=== PATIENT | female | born 1995 | race Caucasian/White ===

== ENCOUNTER 2017-05-15 20:33 | Emergency (ER) | payer OTHER ==
[~2017-05-15] VITALS: Ht 175.3 cm; Wt 117.9 kg
[2017-05-15 20:38] VITALS: BP 115/73
--- NOTE | 2017-05-15 21:18 | NUR ---
PT TAKEN TO BED 3
--- NOTE | 2017-05-15 21:25 | NUR ---
21F BIB SELF C/O MID-LOWER CHEST PAIN, PRESSURE, RADIATES TO BACK, 2/10 X YESTERDAY; NORMAL SINUS RHYTHM NOTED ON THE MONITOR AT THIS TIME; PT STATES " I WAS WORKING AND IT JUST STARTED HURTING"; PT AA&OX4, PERRLA, BL LUNG SOUNDS CLEAR, RR EVEN/UNLABORED, SKIN IS WARM/DRY/INTACT AT THIS TIME; PT STATES NO N/V/D AT THIS TIME; ABDOMEN SOFT, NON-TENDER, ACTIVE BOWEL SOUNDS X 4 QUADRANTS; STEADY GAIT; PT PLACED ON MONITOR, RESTING IN BED WITH HOB ELEVATED AND IN LOWEST POSITION; POSITIONED FOR COMFORT; ER MD MADE AWARE OF STATUS. WILL CONTINUE TO MONITOR.
--- NOTE | 2017-05-15 22:06 | NUR ---
Dr. Serrano evaluating patient at bedside.
[2017-05-15] MEDS ORDERED: IBUPROFEN 400 MG TAB PO ONE (22:15)
--- NOTE | 2017-05-15 22:17 | NUR ---
XRAY AT BEDSIDE.
[2017-05-15 22:47] VITALS: BP 103/62
--- NOTE | 2017-05-15 22:47 | NUR ---
Patient discharged with v/s stable. Written and verbal after care instructions given and explained. Patient alert, oriented and verbalized understanding of instructions. Carried with steady gait. All questions addressed prior to discharge. ID band removed. Patient advised to follow up with PMD. Rx of NAPROSYN 375MG TAB given. Patient educated on indication of medication including possible reaction and side effects. Opportunity to ask questions provided and answered.
== END 2017-05-15 22:47 | disposition home or self-care (01) ==
LOC: MED 20:35
DX: R07.89 Other chest pain (principal)
CPT/HCPCS: 71010; 93005; 99284

== ENCOUNTER 2018-09-24 16:39 | Emergency (ER) | payer SELFPAY ==
[~2018-09-24] VITALS: Ht 175.3 cm; Wt 136.1 kg
[2018-09-24 16:46] VITALS: BP 123/87
--- NOTE | 2018-09-24 16:51 | NUR ---
Eloina santillan in [facility] - 09/24/18 at 1655 by [facility] PT AMBULATES TO BED 1
--- NOTE | 2018-09-24 17:09 | NUR ---
23 Y/O F PRESENTS TO THE ED 28 WKS. GESTATION.DENIES ABD. PAIN,VAG. BLEED AND NO LOWER BACK PAIN +NAUSEA. PT DENIES N/V/D; SKIN IS INTACT, PINK/WARM/DRY; AAOX4, PERRL, WITH EVEN AND STEADY GAIT; LUNGS CLEAR BL, BREATHING UNLABORED; HR EVEN AND REGULAR, BL PERIPHERAL PULSES PRESENT; BS ACTIVE X4, NO TENDERNESS TO PALPATION, NO HEPATOSPLENOMEGALLY PALPATED, RESONANT TO PERCUSSION; PT DENIES ANY FEVER, CP, SOB, OR COUGH AT THIS TIME; PT STATES 0/10 PAIN AT THIS TIME; VSS; PATIENT POSITIONED FOR COMFORT; HOB ELEVATED; BEDRAILS UP X2; BED DOWN.
--- NOTE | 2018-09-24 17:19 | NUR ---
REPORT TO ROLANDO TUBBS
[2018-09-24 17:38] LABS: BASOPHILS % (AUTO) 0.2 % (0.0-2.0); EOSINOPHILS % (AUTO) 0.1 % (0.0-4.0); HEMATOCRIT 39.8 % (36-48); HEMOGLOBIN 13.2 g/dL (12.0-16.0); LYMPHOCYTES # (AUTO) 2.3 K/uL (2.5-16.5); LYMPHOCYTES % (AUTO) 22.8 % (20.5-51.1); MEAN CORPUSCULAR HEMOGLOBIN 29 pg (27-31); MEAN CORPUSCULAR HGB CONC 33 g/dL (33-37); MEAN CORPUSCULAR VOLUME 85.9 fL (80-94); MONOCYTES # (AUTO) 0.5 K/uL (0.8-1.0); MONOCYTES % (AUTO) 5.3 % (1.7-9.3); NEUTROPHILS # (AUTO) 7.3 K/uL (1.8-7.7); NEUTROPHILS % (AUTO) 71.6 % (42.2-75.2); PLATELET COUNT (AUTO) 294 K/uL (140-450); RED BLOOD CELL COUNT(AUTO) 4.63 MIL/uL (4.20-5.40); RED CELL DISTRIBUTION WIDTH 13.8 % (11.6-13.7); WHITE BLOOD COUNT (AUTO) 10.2 K/uL (4.8-10.8)
[2018-09-24 18:06] LABS: ANION GAP 14.6 (8-16); CARBON DIOXIDE 25.2 mmol/L (21-32); CREATININE 0.4 mg/dL (0.6-1.3); POTASSIUM 3.8 mmol/L (3.5-5.1)
[2018-09-24 18:23] LABS: APPEARANCE,URINE CLEAR (CLEAR); BILIRUBIN,URINE NEGATIVE (NEGATIVE); BLOOD, URINE NEGATIVE (NEGATIVE); COLOR,URINE YELLOW (YELLOW); NITRITE, URINE NEGATIVE (NEGATIVE); UGLUCOSE NEGATIVE (NEGATIVE)
[2018-09-24 18:28] LABS: LEUKOCYTE ESTERASE ,URINE 3+ (NEGATIVE)
[2018-09-24 18:30] LABS: RBC,URINE NONE SEEN /HPF (0-5)
[2018-09-24 18:39] VITALS: BP 125/82
== END 2018-09-24 18:39 | disposition home or self-care (01) ==
LOC: MED 16:39
DX: O23.43 Unspecified infection of urinary tract in pregnancy, third trimester (principal); O21.0 Mild hyperemesis gravidarum; O26.893 Other specified pregnancy related conditions, third trimester; R42 Dizziness and giddiness; R51 Headache; Z3A.28 28 weeks gestation of pregnancy
CPT/HCPCS: 36415; 80048; 81001; 81025; 82948; 84702; 85025; 87086; 99283